=== PATIENT | female | born 1995 | race Caucasian/White ===

== ENCOUNTER 2018-04-24 18:44 | Emergency (ER) | payer OTHER ==
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
[2018-04-24 21:36] VITALS: BP 120/76; PULSE 87; RESP 18; TEMP 97.8
[2018-04-24 22:37] VITALS: O2SAT 100
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
== END 2018-04-24 21:36 | disposition home or self-care (01) ==
LOC: H.ER 18:44
DX: S19.9XXA Unspecified injury of neck, initial encounter (principal); V43.62XA Car passenger injured in collision with other type car in traffic accident, initial encounter; Y92.410 Unspecified street and highway as the place of occurrence of the external cause